=== PATIENT | male | born 1975 | race Caucasian/White ===

== ENCOUNTER 2018-01-22 10:57 | Observation (INO) ==
[2018-01-22 13:19] VITALS: BMI 38.0
[2018-01-22 13:29] LABS: BASOPHILS # (AUTO) 0.1 X10^3/uL (0.0-0.1); EOSINOPHILS # (AUTO) 0.1 x10^3/uL (0.0-0.2); EOSINOPHILS % (AUTO) 0.7 % (0.9-2.9); HEMATOCRIT 49.5 % (42.0-54.0); HEMOGLOBIN 17.4 g/dL (13.5-18.0); LYMPHOCYTES # (AUTO) 2.1 X10^3/uL (1.3-2.9); LYMPHOCYTES % (AUTO) 27.6 % (21.0-51.0); MEAN CORPUSCULAR HEMOGLOBIN 33.4 pg (27.0-34.0); MEAN CORPUSCULAR HGB CONC 35.1 g/dL (33.0-35.0); MEAN PLATELET VOLUME 7.6 fL (7.4-11.0); MONOCYTES # (AUTO) 0.7 x10^3/uL (0.3-0.8); MONOCYTES % (AUTO) 8.9 % (0.0-13.0); NEUTROPHILS # (AUTO) 4.6 x10^3/uL (2.2-4.8); NEUTROPHILS % (AUTO) 61.8 % (42.0-75.0); PLATELET COUNT 254 X10^3/uL (150.0-450.0); RED BLOOD COUNT 5.22 X10^6/uL (4.7-6.0); RED CELL DISTRIBUTION WIDTH 12.5 % (11.6-16.5); WHITE BLOOD COUNT 7.5 X10^3/uL (3.6-10.0)
[2018-01-22 13:38] LABS: ALANINE AMINOTRANSFERASE 119 Units/L (12-78); ALBUMIN 3.9 g/dL (3.4-5.0); ALKALINE PHOSPHATASE 67 Units/L (46-116); AMYLASE 36 Units/L (25-115); ASPARTATE AMINO TRANSFERASE 63 Units/L (15-37); BLOOD UREA NITROGEN 13 mg/dL (7-18); CALCIUM 8.3 mg/dL (8.5-10.1); CARBON DIOXIDE 29.1 mmol/L (21-32); CHLORIDE 104 mmol/L (98-107); CREATININE 1.28 mg/dL (0.70-1.30); LIPASE 222 Units/L (73-393); SODIUM 140 mmol/L (136-145); TOTAL PROTEIN 7.6 g/dL (6.4-8.2); eGFR NON BLACK RACES > 60 (>60)
--- NOTE | 2018-01-22 17:33 | DR.H&P ---
H&P - History & Physical for Day of: H&P Date: 01/22/18 - Chief Complaint Chief Complaint: RIGHT UPPER ABDOMINAL PAIN, N/V, FOOD INTOLERANCE - History of Present Illness History of Present Illness: 42 WM DIRECT ADMIT FROM DR IGNACIO OFFICE WITH CO RIGHT UPPER ABDOMINAL PAIN WITH SWELLING AND INTRACTABLE PAIN WITH N/V AFTER EATING BBQ ON SUNDAY. PT RECENTLY HAD SIMILIAR ATTACK HAD LABS CXR AND EKG, STABLE WITH ELEVATION IN LIVER ENZYMES. PT HAS TAKE OTC ANTACIDS WITHOUT ANY RELIEF. PT ADMITTED FOR TREATMENT OF ACUTE ILLNESS, HEPATOMEGALY, R/O GB DYSFUNCTION - Past Medical History Past Medical History: Kidney Stones - Past Surgical History Surgical History: Appendectomy, Ortho Surgery - Family History Family Medical History: [place], Coronary Artery Disease, Hypertension - Social History Does patient currently use any type of tobacco product: No Have you used tobacco products in the last 12 months: No Type of Tobacco Use: Cigarettes How many years tobacco product used: 6 Does any household member use tobacco: No Alcohol Use: None Drug Use: None - Medications Home Medications: aspirin Allergy (Verified 01/22/18 12:51) CONTINUE taking the following medications NK 01/22/18 [History] - Review of Systems Constitutional: Chills Eyes: No Symptoms Reported ENT: No Symptoms Reported Respiratory: No Symptoms Reported Cardiovascular: Palpitations Gastrointestinal: Nausea, Vomiting, Abdominal Pain Genitourinary: No Symptoms Reported Musculoskeletal: No Symptoms Reported Skin: No Symptoms Reported Neurological: No Symptoms Reported - Physical Exam Vital Signs: Temperature 97.9 F Pulse Rate [Right Brachial] 76 Respiratory Rate 18 Blood Pressure [Right Arm] 146/70 Blood Pressure 148/88 O2 Sat by Pulse Oximetry 97 Oriented: Normal Eyes: Normal Ear: Normal Nose: Normal Throat: Normal Respiratory: RLL Diminished Cardiovascular: Normal : Normal, Hematuria Palpation: Normal Tenderness: RUQ, Epigastric Skin: Normal Musculoskeletal: Normal Psychiatric: Normal Mood Description: Calm Speech Pattern: Clear, Appropriate - Assessment/Plan (1) RUQ pain Status: Acute Plan: ADMIT, NPO, IV PROTONIX. PAIN CONTROL, GB US, AM HIDA. BP CONTROL, ADMISSION LABS CBC CMP AMYLASE AND LIPASE. UA, EKG H PYLORI. HEPATITIS PANEL (2) Nausea and vomiting Status: Acute (3) Food intolerance Status: Acute (4) Hepatomegaly Status: Acute - Allergies Allergies/Adverse Reactions: Allergies Allergy/AdvReac Type Severity Reaction Status Date / Time aspirin Allergy Verified 01/22/18 12:51
[2018-01-22] MEDS: NS 1000 ML 1,000 ML IV SCH (18:03)
[2018-01-22] MEDS: PROTONIX INJ 40 MG VIAL IVP SCH (18:03)
[2018-01-22 22:44] LABS: BILIRUBIN,URINE NEGATIVE (NEGATIVE); BLOOD/HEMOGLOBIN,URINE NEGATIVE (NEGATIVE); GLUCOSE, URINE NEGATIVE (NEGATIVE); KETONES,URINE NEGATIVE (NEGATIVE); LEUKOCYTE ESTERASE ,URINE NEGATIVE (NEGATIVE); NITRITES,URINE NEGATIVE (NEGATIVE); PROTEIN,URINE 2+ (NEGATIVE); UROBILINOGEN,URINE NORMAL (NORMAL)
[2018-01-22 22:51] LABS: APPEARANCE,URINE CLEAR (CLEAR); BACTERIA,URINE NEGATIVE /HPF (NEGATIVE); COLOR,URINE YELLOW (YELLOW); RBC,URINE NONE SEEN /HPF (NONE SEEN); SQUAMOUS EPITHELIAL CELL,UR RARE /HPF (NEGATIVE)
[2018-01-23 05:06] LABS: BASOPHILS % (AUTO) 0.6 % (0.2-1.0); EOSINOPHILS # (AUTO) 0.1 x10^3/uL (0.0-0.2); EOSINOPHILS % (AUTO) 1.8 % (0.9-2.9); HEMATOCRIT 46.3 % (42.0-54.0); HEMOGLOBIN 16.3 g/dL (13.5-18.0); LYMPHOCYTES # (AUTO) 2.2 X10^3/uL (1.3-2.9); LYMPHOCYTES % (AUTO) 28.4 % (21.0-51.0); MEAN CORPUSCULAR HEMOGLOBIN 33.6 pg (27.0-34.0); MEAN CORPUSCULAR HGB CONC 35.2 g/dL (33.0-35.0); MEAN CORPUSCULAR VOLUME 95.3 fL (80.0-100.0); MEAN PLATELET VOLUME 7.8 fL (7.4-11.0); MONOCYTES # (AUTO) 0.9 x10^3/uL (0.3-0.8); MONOCYTES % (AUTO) 11.7 % (0.0-13.0); NEUTROPHILS # (AUTO) 4.5 x10^3/uL (2.2-4.8); NEUTROPHILS % (AUTO) 57.5 % (42.0-75.0); PLATELET COUNT 238 X10^3/uL (150.0-450.0); RED BLOOD COUNT 4.85 X10^6/uL (4.7-6.0); RED CELL DISTRIBUTION WIDTH 12.8 % (11.6-16.5); WHITE BLOOD COUNT 7.8 X10^3/uL (3.6-10.0)
[2018-01-23 05:16] LABS: ALANINE AMINOTRANSFERASE 105 Units/L (12-78); ALBUMIN 3.4 g/dL (3.4-5.0); ALKALINE PHOSPHATASE 61 Units/L (46-116); ASPARTATE AMINO TRANSFERASE 54 Units/L (15-37); BLOOD UREA NITROGEN 13 mg/dL (7-18); CALCIUM 8.3 mg/dL (8.5-10.1); CHLORIDE 106 mmol/L (98-107); CREATININE 1.35 mg/dL (0.70-1.30); SODIUM 141 mmol/L (136-145); TOTAL PROTEIN 6.9 g/dL (6.4-8.2); eGFR NON BLACK RACES > 60 (>60)
[2018-01-23] MEDS: NS 1000 ML 1,000 ML IV SCH (05:46)
[2018-01-23] MEDS: PROTONIX INJ 40 MG VIAL IVP SCH (08:23)
[2018-01-23] MEDS ORDERED: NORCURON INJ 10 MG VIAL ONE (09:03)
[2018-01-23] MEDS ORDERED: QUELICIN (OR ANECTINE) ONE (09:03)
[2018-01-23] MEDS ORDERED: TORADOL 30 MG VIAL ONE (09:03)
[2018-01-23] MEDS ORDERED: SUPRANE IN ONE (09:03)
[2018-01-23] MEDS ORDERED: DIPRIVAN VIAL ONE (09:03)
[2018-01-23] MEDS ORDERED: REGLAN INJ 10 MG VIAL ONE (09:03)
[2018-01-23] MEDS ORDERED: VERSED ONE (09:03)
[2018-01-23] MEDS ORDERED: ZOFRAN INJ 4 MG VIAL ONE (09:03)
[2018-01-23] MEDS ORDERED: NEOSTIGMINE INJ ONE (09:03)
[2018-01-23] MEDS ORDERED: XYLOCAINE 2 % (PLAIN) ONE (09:03)
[2018-01-23] MEDS ORDERED: LTA KIT LIDOCAINE 4% ONE (09:03)
[2018-01-23] MEDS ORDERED: LR 1000 ML IV 1,000 ML IV ONE (15:08)
[2018-01-23] MEDS ORDERED: ANCEF 1 GRAM IV PREMIX* 2 G/100 ML BAG IV ONE (15:13)
[2018-01-23] MEDS ORDERED: FENTANYL INJ 250 mcg ONE (15:17)
[2018-01-23] MEDS ORDERED: ROBINUL ONE (15:52)
[2018-01-23] MEDS ORDERED: DILAUDID INJ ONE ×3 (16:22→16:54)
[2018-01-23] MEDS ORDERED: BACTROBAN TOPICAL OINT ONE (16:24)
[2018-01-23] MEDS ORDERED: PHENERGAN INJ 25 MG ONE (16:56)
--- NOTE | 2018-01-23 17:02 | OR.GENERIC ---
Post-Op Note Generic - Post-Op Note Operative Report: diagnostic lap , lysis of adhesions and lap jay jay was done .. findings : abdominal adhesions around the terminal ileum and GB . fatty liver .. Pt did well . .to keep on clear liquid today .. will follow in 10 days ..
[2018-01-23] MEDS ORDERED: ZOFRAN INJ 4 MG VIAL IV PRN (17:16)
[2018-01-23] MEDS ORDERED: DILAUDID INJ IVP PRN (17:16)
--- NOTE | 2018-01-23 17:46 | PCM.PROG ---
Progress Note - Progress Note for Day of Date of Exam: 01/23/18 - Subjective Subjective: 42 WM ADMIT ON 01/22 WITH INTRACTABLE RUQ PAIN, FOOD INTOLERANCE AND N/V. PT HAS RUQ TENDERNESS WITH BLOATING AND DISTENTION. PT HAD BG US AND CT ABD PELVIS WITHOUT ACUTE FINDINGS. PT HAD ELEVATED LFT'S ON ADMISSION, NORMAL AMYLASE AND LIPASE. PT IS NPO FOR HIDA SCAN TODAY. WILL CONSULT DR THOMPSON WITH ABNORMAL FINDINGS - Past Medical Family Social History Allergies: Allergies aspirin Allergy (Verified 01/22/18 12:51) - Review of Systems ROS: No change since H&P - Vital Signs and I&O's Vital Signs: Temperature 97.7 F Pulse Rate [Right Brachial] 94 Pulse Rate 74 Respiratory Rate 16 Blood Pressure [Left Arm] 135/81 Blood Pressure [Right Arm] 123/82 Blood Pressure 150/80 O2 Sat by Pulse Oximetry 96 Intake and Output: Intake & Output 01/21/18 01/22/18 01/23/18 01/24/18 11:59 11:59 11:59 11:59 Intake Total 740 / 740 1705 / 1705 Output Total 0 / 0 750 / 750 Balance 740 / 740 955 / 955 - Physical Exam Oriented: Normal Eyes: Normal Ear: Normal Nose: Normal Throat: Normal Respiratory: Normal Cardiovascular: Normal : Normal, Hematuria Tenderness: RUQ, Epigastric Skin: Normal Musculoskeletal: Normal Psychiatric: Normal Mood Description: Calm Speech Pattern: Clear, Appropriate - Laboratory and Diagnostics Result Diagrams: 01/23/18 04:25 01/23/18 04:25 Labs: Laboratory WBC 7.8 X10^3/uL (3.6-10.0) 01/23/18 04:25 RBC 4.85 X10^6/uL (4.7-6.0) 01/23/18 04:25 Hgb 16.3 g/dL (13.5-18.0) 01/23/18 04:25 Hct 46.3 % (42.0-54.0) 01/23/18 04:25 MCV 95.3 fL (80.0-100.0) 01/23/18 04:25 MCH 33.6 pg (27.0-34.0) 01/23/18 04:25 MCHC 35.2 g/dL (33.0-35.0) H 01/23/18 04:25 RDW 12.8 % (11.6-16.5) 01/23/18 04:25 Plt Count 238 X10^3/uL (150.0-450.0) 01/23/18 04:25 MPV 7.8 fL (7.4-11.0) 01/23/18 04:25 Neut % (Auto) 57.5 % (42.0-75.0) 01/23/18 04:25 Lymph % (Auto) 28.4 % (21.0-51.0) 01/23/18 04:25 Benson % (Auto) 11.7 % (0.0-13.0) 01/23/18 04:25 Eos % (Auto) 1.8 % (0.9-2.9) 01/23/18 04:25 Baso % (Auto) 0.6 % (0.2-1.0) 01/23/18 04:25 Neut # (Auto) 4.5 x10^3/uL (2.2-4.8) 01/23/18 04:25 Lymph # (Auto) 2.2 X10^3/uL (1.3-2.9) 01/23/18 04:25 Benson # (Auto) 0.9 x10^3/uL (0.3-0.8) H 01/23/18 04:25 Eos # (Auto) 0.1 x10^3/uL (0.0-0.2) 01/23/18 04:25 Baso # (Auto) 0.0 X10^3/uL (0.0-0.1) 01/23/18 04:25 Absolute Nucleated RBC 0.1 /100WBC 01/23/18 04:25 Sodium 141 mmol/L (136-145) 01/23/18 04:25 Corrected Sodium TNP 01/23/18 04:25 Potassium 4.7 mmol/L (3.5-5.1) 01/23/18 04:25 Chloride 106 mmol/L (98-107) 01/23/18 04:25 Carbon Dioxide 27.0 mmol/L (21-32) 01/23/18 04:25 BUN 13 mg/dL (7-18) 01/23/18 04:25 Creatinine 1.35 mg/dL (0.70-1.30) H 01/23/18 04:25 Est GFR (MDRD) Af Amer > 60 (>60) 01/23/18 04:25 Est GFR (MDRD) Non-Af > 60 (>60) 01/23/18 04:25 Glucose 98 mg/dL (65-99) 01/23/18 04:25 Calcium 8.3 mg/dL (8.5-10.1) L 01/23/18 04:25 Corrected Calcium TNP 01/23/18 04:25 Total Bilirubin 1.50 mg/dL (0.2-1.0) H 01/23/18 04:25 AST 54 Units/L (15-37) H 01/23/18 04:25 ALT 105 Units/L (12-78) H 01/23/18 04:25 Alkaline Phosphatase 61 Units/L (46-116) 01/23/18 04:25 Total Protein 6.9 g/dL (6.4-8.2) 01/23/18 04:25 Albumin 3.4 g/dL (3.4-5.0) 01/23/18 04:25 Globulin 3.5 g/dL (2.5-4.5) 01/23/18 04:25 Albumin/Globulin Ratio 1.0 Ratio (1.1-2.1) L 01/23/18 04:25 Amylase 36 Units/L (25-115) 01/22/18 13:05 Lipase 222 Units/L (73-393) 01/22/18 13:05 Specimen Type Clean catch urine 01/22/18 22:20 Urine Color Yellow (YELLOW) 01/22/18 22:20 Urine Appearance Clear (CLEAR) 01/22/18 22:20 Urine pH 5.0 (5.0 - 8.0) 01/22/18 22:20 Ur Specific Donaldson 1.010 (1.000-1.030) 01/22/18 22:20 Urine Protein 2+ (NEGATIVE) 01/22/18 22:20 Urine Glucose (UA) Negative (NEGATIVE) 01/22/18 22:20 Urine Ketones Negative (NEGATIVE) 01/22/18 22:20 Urine Occult Blood Negative (NEGATIVE) 01/22/18 22:20 Urine Nitrite Negative (NEGATIVE) 01/22/18 22:20 Urine Bilirubin Negative (NEGATIVE) 01/22/18 22:20 Urine Urobilinogen Normal (NORMAL) 01/22/18 22:20 Ur Leukocyte Esterase Negative (NEGATIVE) 01/22/18 22:20 Urine RBC None seen /HPF (NONE SEEN) 01/22/18 22:20 Urine WBC 0-2 /HPF (NONE SEEN) 01/22/18 22:20 Ur Squamous Epith Cells Rare /HPF (NEGATIVE) 01/22/18 22:20 Urine Bacteria Negative /HPF (NEGATIVE) 01/22/18 22:20 Ur Culture Indicated? No/not indicated 01/22/18 22:20 - Plan (1) RUQ pain Status: Acute Plan: NPO, IV PROTONIX. PAIN CONTROL, HIDA. BP CONTROL, CONSULT DR THOMPSON. GENTLE IV HYDRATION (2) Nausea and vomiting Status: Acute (3) Food intolerance Status: Acute (4) Hepatomegaly Status: Acute
[2018-01-23] MEDS: D5 1/2 NS 1000 ML 1,000 ML IV SCH (18:16)
[2018-01-24] MEDS: D5 1/2 NS 1000 ML 1,000 ML IV SCH ×2 (03:40→11:07)
[2018-01-24] MEDS: NORCO 7.5/325 MG TAB PO PRN ×2 (04:05→08:23)
[2018-01-24 06:12] LABS: BASOPHILS % (AUTO) 0.5 % (0.2-1.0); EOSINOPHILS % (AUTO) 0.3 % (0.9-2.9); HEMATOCRIT 44.2 % (42.0-54.0); HEMOGLOBIN 15.7 g/dL (13.5-18.0); LYMPHOCYTES # (AUTO) 1.8 X10^3/uL (1.3-2.9); LYMPHOCYTES % (AUTO) 17.1 % (21.0-51.0); MEAN CORPUSCULAR HEMOGLOBIN 33.8 pg (27.0-34.0); MEAN CORPUSCULAR HGB CONC 35.5 g/dL (33.0-35.0); MEAN CORPUSCULAR VOLUME 95.2 fL (80.0-100.0); MEAN PLATELET VOLUME 7.8 fL (7.4-11.0); MONOCYTES # (AUTO) 0.8 x10^3/uL (0.3-0.8); MONOCYTES % (AUTO) 7.6 % (0.0-13.0); NEUTROPHILS # (AUTO) 7.6 x10^3/uL (2.2-4.8); NEUTROPHILS % (AUTO) 74.5 % (42.0-75.0); PLATELET COUNT 233 X10^3/uL (150.0-450.0); RED BLOOD COUNT 4.64 X10^6/uL (4.7-6.0); RED CELL DISTRIBUTION WIDTH 12.8 % (11.6-16.5); WHITE BLOOD COUNT 10.2 X10^3/uL (3.6-10.0)
[2018-01-24 06:20] LABS: ALANINE AMINOTRANSFERASE 95 Units/L (12-78); ALBUMIN 3.3 g/dL (3.4-5.0); ALKALINE PHOSPHATASE 58 Units/L (46-116); ASPARTATE AMINO TRANSFERASE 51 Units/L (15-37); BLOOD UREA NITROGEN 10 mg/dL (7-18); CARBON DIOXIDE 29.2 mmol/L (21-32); CHLORIDE 105 mmol/L (98-107); COR CA(FOR HYPOALB) 8.6 mg/dL (8.5-10.1); COR NA(FOR HYPERGLY) 142 mmol/L (136-145); CREATININE 1.24 mg/dL (0.70-1.30); SODIUM 141 mmol/L (136-145); TOTAL PROTEIN 6.6 g/dL (6.4-8.2); eGFR NON BLACK RACES > 60 (>60)
[2018-01-24] MEDS: NS 1000 ML 1,000 ML IV SCH ×2 (07:03→07:05)
[2018-01-24] MEDS: PROTONIX INJ 40 MG VIAL IVP SCH (08:24)
[2018-01-24 08:33] VITALS: BP 115/71
[2018-01-24 21:45] LABS: HEPATITIS A ANTIBODY IGM Negative (Negative)
[2018-01-25 06:59] LABS: HEPATITIS B CORE IGM Negative (Negative); HEPATITIS B SURFACE ANTIGEN Negative (Negative)
== END 2018-01-24 11:35 | disposition home or self-care (01) ==
LOC: MED/SURG
PROVIDERS: ADMIT Internal Medicine; ATTEND Internal Medicine
DX: R10.11 Right upper quadrant pain; K76.89 Other specified diseases of liver; K76.0 Fatty (change of) liver, not elsewhere classified; R11.2 Nausea with vomiting, unspecified; K90.49 Malabsorption due to intolerance, not elsewhere classified; E66.01 Morbid (severe) obesity due to excess calories; R07.89 Other chest pain; K81.1 Chronic cholecystitis; K66.0 Peritoneal adhesions (postprocedural) (postinfection); K82.8 Other specified diseases of gallbladder; R94.5 Abnormal results of liver function studies
CPT/HCPCS: 36415; 74177; 76705; 78227; 80053; 80074; 81001; 82150; 83690; 85025; 93005; 93010; 94760; 96367; 96374; A4216; A4222; C9113; G0378; J0330; J0690; J1170; J1885; J2250; J2405; J2550; J2704; J2710; J2765; J3010; J3490; J7030; J7120; S5010

== ENCOUNTER 2018-11-07 11:33 | Observation (INO) ==
[2018-11-07] MEDS ORDERED: ZOFRAN INJ 4 MG VIAL IVP PRN (13:30)
[2018-11-07] MEDS ORDERED: MORPHINE SULFATE INJ 2 MG INJ IVP PRN (13:30)
[2018-11-07] MEDS ORDERED: APRESOLINE INJ 20 MG VIAL IVP PRN (13:35)
[2018-11-07 14:11] LABS: ABG BASE EXCESS 1.3 mmol/L (-2.0-2.0); ABG HCO3 24.9 mmol/L (22-26)
[2018-11-07 14:12] LABS: ABG ALLEN TEST POS
[2018-11-07 14:40] LABS: BASOPHILS # (AUTO) 0.1 X10^3/uL (0.0-0.1); BASOPHILS % (AUTO) 0.9 % (0.2-1.0); EOSINOPHILS # (AUTO) 0.1 x10^3/uL (0.0-0.2); HEMOGLOBIN 17.7 g/dL (13.5-18.0); LYMPHOCYTES # (AUTO) 2.4 X10^3/uL (1.3-2.9); LYMPHOCYTES % (AUTO) 29.5 % (21.0-51.0); MEAN CORPUSCULAR HEMOGLOBIN 33.8 pg (27.0-34.0); MEAN CORPUSCULAR HGB CONC 35.5 g/dL (33.0-35.0); MEAN CORPUSCULAR VOLUME 95.3 fL (80.0-100.0); MONOCYTES # (AUTO) 0.7 x10^3/uL (0.3-0.8); MONOCYTES % (AUTO) 8.7 % (0.0-13.0); NEUTROPHILS # (AUTO) 4.9 x10^3/uL (2.2-4.8); NEUTROPHILS % (AUTO) 59.9 % (42.0-75.0); PLATELET COUNT 239 X10^3/uL (150.0-450.0); RED BLOOD COUNT 5.24 X10^6/uL (4.7-6.0); RED CELL DISTRIBUTION WIDTH 12.6 % (11.6-16.5); WHITE BLOOD COUNT 8.1 X10^3/uL (3.6-10.0)
[2018-11-07] MEDS: PROTONIX INJ 40 MG VIAL IVP SCH (14:44)
[2018-11-07] MEDS: NS 1000 ML 1,000 ML IV SCH (14:44)
[2018-11-07 14:56] LABS: BLOOD UREA NITROGEN 8 mg/dL (7-18); CALCIUM 8.6 mg/dL (8.5-10.1); CARBON DIOXIDE 27.1 mmol/L (21-32); CHLORIDE 106 mmol/L (98-107); CREATININE 1.24 mg/dL (0.70-1.30); SODIUM 142 mmol/L (136-145); TROPONIN I < 0.02 ng/mL (0-1.5); eGFR NON BLACK RACES > 60 (>60)
[2018-11-07 14:59] LABS: ALANINE AMINOTRANSFERASE 69 Units/L (12-78); ALBUMIN 3.8 g/dL (3.4-5.0); ALKALINE PHOSPHATASE 71 Units/L (46-116); ASPARTATE AMINO TRANSFERASE 52 Units/L (15-37); CKMB % 0.6 % (<4); CREATINE KINASE 170 Units/L (39-308); CREATINE KINASE MB < 1.0 ng/mL (0-4.0); TOTAL PROTEIN 7.7 g/dL (6.4-8.2)
[2018-11-07 15:52] VITALS: BMI 37.3
[2018-11-07 19:17] LABS: AMYLASE 31 Units/L (25-115); LIPASE 206 Units/L (73-393)
[2018-11-08] MEDS: NS 1000 ML 1,000 ML IV SCH ×3 (01:48→05:45)
[2018-11-08] MEDS ORDERED: NS 100 ML IV 100 ML ONE (02:24)
[2018-11-08 05:46] LABS: BASOPHILS # (AUTO) 0.1 X10^3/uL (0.0-0.1); BASOPHILS % (AUTO) 0.9 % (0.2-1.0); EOSINOPHILS # (AUTO) 0.2 x10^3/uL (0.0-0.2); EOSINOPHILS % (AUTO) 2.4 % (0.9-2.9); HEMOGLOBIN 16.1 g/dL (13.5-18.0); LYMPHOCYTES # (AUTO) 2.3 X10^3/uL (1.3-2.9); LYMPHOCYTES % (AUTO) 31.9 % (21.0-51.0); MEAN CORPUSCULAR HEMOGLOBIN 33.7 pg (27.0-34.0); MEAN CORPUSCULAR VOLUME 96.4 fL (80.0-100.0); MEAN PLATELET VOLUME 8.4 fL (7.4-11.0); MONOCYTES # (AUTO) 0.8 x10^3/uL (0.3-0.8); MONOCYTES % (AUTO) 11.1 % (0.0-13.0); NEUTROPHILS # (AUTO) 3.9 x10^3/uL (2.2-4.8); NEUTROPHILS % (AUTO) 53.7 % (42.0-75.0); PLATELET COUNT 190 X10^3/uL (150.0-450.0); RED BLOOD COUNT 4.78 X10^6/uL (4.7-6.0); RED CELL DISTRIBUTION WIDTH 12.8 % (11.6-16.5); WHITE BLOOD COUNT 7.3 X10^3/uL (3.6-10.0)
[2018-11-08 05:57] LABS: ALANINE AMINOTRANSFERASE 61 Units/L (12-78); ALBUMIN 3.3 g/dL (3.4-5.0); ALKALINE PHOSPHATASE 64 Units/L (46-116); ASPARTATE AMINO TRANSFERASE 40 Units/L (15-37); BLOOD UREA NITROGEN 8 mg/dL (7-18); CALCIUM 8.3 mg/dL (8.5-10.1); CARBON DIOXIDE 27.7 mmol/L (21-32); CHLORIDE 107 mmol/L (98-107); COR CA(FOR HYPOALB) 8.9 mg/dL (8.5-10.1); CREATININE 1.26 mg/dL (0.70-1.30); SODIUM 142 mmol/L (136-145); TOTAL PROTEIN 6.9 g/dL (6.4-8.2); eGFR NON BLACK RACES > 60 (>60)
[2018-11-08 05:59] LABS: CHOL/HDL RATIO 5.4 (0.0-5.0)
--- NOTE | 2018-11-08 07:49 | CT ---
CT OF THE CHEST, ABDOMEN AND PELVIS WITH IV CONTRAST HISTORY: Acute lower abdominal pain and shortness of breath Comparison: 01/23/2018 Technique: Multiple axial images of the chest, abdomen, and pelvis were obtained from the thoracic inlet to the pubic symphysis after the administration of IV contrast.Dose reduction techniques including Automated Exposure Control (AEC) and adjustment of mA and kV were utlized. Findings: CT chest with contrast: The heart is normal in size. No pericardial effusion. No suspicious mediastinal or axillary lymph nodes. Although not optimized to detect pulmonary embolism, no large central pulmonary emboli are seen. No focal consolidations, pleural effusions or pneumothorax. Airways are patent. Tiny bilateral pulmonary nodules with the largest on the right measuring 3 mm in the right upper lobe on series 5, image 29. Largest on the left measures 4 mm in the lingula on series 5, image 40. CT abdomen and pelvis with contrast : Liver and spleen are normal in size and contour. Hepatic steatosis. The portal vein is patent. No ductal dilitation. Gallbladder absent. The pancreas is unremarkable. Adrenal glands are normal. Kidneys enhance symmetrically without hydronephrosis or nephrolithiasis. No bowel obstruction or inflammation. There are shotty right lower quadrant mesenteric lymph nodes. No free fluid or fluid collections. Appendix not seen. The bladder is normal in appearance. Prostate unremarkable. No free fluid or abnormal pelvic lymph nodes. No aggressive osseous lesions. IMPRESSION: 1. No source of patient's symptoms is definitively identified other than some shotty right lower quadrant lymph nodes. In the absence of evidence of acute appendicitis this may represent mesenteric adenitis. Correlate clinically. 2. Tiny bilateral pulmonary nodules. Recommend correlation with prior exams if available to confirm stability. Otherwise, if patient is at low risk for lung cancer, no further follow up needed; if patient is at high risk for lung cancer, optional followup CT at 12 months. http://pubs.[facility]na.org/doi/abs/[email or web address] 3. Hepatic steatosis. Reported By:
[2018-11-08] MEDS: PROTONIX INJ 40 MG VIAL IVP SCH (08:42)
[2018-11-08 08:56] LABS: BILIRUBIN,URINE NEGATIVE (NEGATIVE); BLOOD/HEMOGLOBIN,URINE NEGATIVE (NEGATIVE); GLUCOSE, URINE NEGATIVE (NEGATIVE); KETONES,URINE NEGATIVE (NEGATIVE); LEUKOCYTE ESTERASE ,URINE NEGATIVE (NEGATIVE); NITRITES,URINE NEGATIVE (NEGATIVE); PROTEIN,URINE NEGATIVE (NEGATIVE); UROBILINOGEN,URINE NORMAL (NORMAL)
[2018-11-08 08:58] LABS: APPEARANCE,URINE CLEAR (CLEAR); COLOR,URINE AMBER (YELLOW)
[2018-11-08 12:24] VITALS: BP 132/82
[2018-11-08] MEDS ORDERED: SOLU-Medrol 125 MG VIAL IVP ONE (13:20)
[2018-11-08] MEDS ORDERED: TORADOL 30 MG VIAL IVP ONE (13:21)
--- NOTE | 2018-11-08 14:13 | RAD ---
HISTORY: Pain, degenerative disc disease Study: Three-view thoracic spine Comparison: CT scan of the chest also done today Findings: The examination is markedly under penetrated on the frontal view inferiorly. Fortunately, the CT scan did display this area very adequately today without abnormality. No fracture or subluxation is seen. Mild spondylosis is present on the right at T7-8. Intervertebral disc spaces are well maintained. No evidence of paraspinous mass or fluid is seen. IMPRESSION: No fracture, subluxation or disc space narrowing. There is mild mid thoracic spondylosis at T7-8. Reported By:
--- NOTE | 2018-11-08 14:16 | RAD ---
HISTORY: Pain, degenerative disc disease Study: Five view lumbar spine Comparison: CT scan of the abdomen done this same date. Findings: There is mild mid-upper lumbar scoliosis, convex to the patient's right side. There are surgical clips from cholecystectomy. There is some contrast material present within the transverse colon and within the urinary bladder. There is mild multilevel lumbar spondylosis without fracture, subluxation or disc space narrowing. Pedicles, transverse processes and posterior elements are intact. IMPRESSION: No fracture, subluxation or disc space narrowing. Mild multilevel spondylosis and lumbar scoliosis as noted above. Reported By:
== END 2018-11-08 15:00 | disposition home or self-care (01) ==
LOC: MED/SURG
PROVIDERS: ADMIT Internal Medicine; ATTEND Internal Medicine
DX: R06.02 Shortness of breath; R03.0 Elevated blood-pressure reading, without diagnosis of hypertension; K76.0 Fatty (change of) liver, not elsewhere classified; M51.36 Other intervertebral disc degeneration, lumbar region; I10 Essential (primary) hypertension; K21.9 Gastro-esophageal reflux disease without esophagitis; E66.9 Obesity, unspecified; M51.34 Other intervertebral disc degeneration, thoracic region; R91.8 Other nonspecific abnormal finding of lung field; R07.89 Other chest pain; R10.84 Generalized abdominal pain
CPT/HCPCS: 36415; 36600; 71260; 72072; 72110; 74177; 80053; 80061; 81003; 82150; 82550; 82553; 82803; 83690; 84484; 85025; 85378; 93005; 96367; 96374; A4222; C9113; G0378; J1885; J2930; J7030; J7050